=== PATIENT | male | born 1955 | race African-American/Black ===

== ENCOUNTER → 2017-11-12 | Outpatient (CLI) | payer OTHER ==
[~2017-11-12] MED LIST: ALFU10TA11 PO; DUTA1CPM PO; FINA5TAB6 PO; LISI-552 PO
--- NOTE | 2017-11-12 17:19 | Diagnostic Imaging Report ---
PROCEDURE: CT abdomen and pelvis without contrast. TECHNIQUE: Multiple contiguous axial images were obtained through the abdomen and pelvis without the use of intravenous contrast. INDICATION: Gross hematuria. COMPARISON: None. FINDINGS: The lung bases are clear. The heart is normal in size. There is no pericardial effusion. There is a 2.5 cm circumscribed hypodense lesion in segment 8 of the liver. The remainder of the liver is unremarkable on this noncontrast study. The spleen appears normal. The pancreas appears normal. The adrenal glands are unremarkable. There is no hydronephrosis. No renal calculi are seen. The kidneys are otherwise unremarkable on this noncontrast study. The bowel loops are nondistended without evidence of obstruction. The appendix is normal. The urinary bladder is decompressed. The prostate is mildly large, measuring 6 cm transverse. Sclerotic foci in the proximal left femur likely represent bone islands. No acute osseous abnormality is seen. IMPRESSION: 1. No hydronephrosis or obstructing renal calculi. No acute renal abnormality is seen on this noncontrast study. 2. 2.5 cm hypodense lesion in segment 8 of the liver. The border is well circumscribed and this could represent a benign lesion, however consider nonemergent followup CT or MRI using liver contrast protocol. 3. Prostatomegaly. Dictated by: Dictated on workstation # [id number]
== END ==
LOC: RAD 16:50
PROVIDERS: ATTEND Urology
DX: N40.0 Benign prostatic hyperplasia without lower urinary tract symptoms (principal); K76.0 Fatty (change of) liver, not elsewhere classified
CPT/HCPCS: 74176

== ENCOUNTER → 2017-11-15 | Outpatient (CLI) | payer OTHER ==
[~2017-11-15] MED LIST changes: +IOHEXOL 350 MG/ML 100 ML (OMNIPAQUE 350) VIAL IV ONE; +NS 250 ML (IVPB) BAG IV ONE
[2017-11-15 13:34] LABS: BUN/CREATININE RATIO 13; CREATININE SERUM 0.98 MG/DL (0.60-1.30); GFR ESTIMATED > 60
--- NOTE | 2017-11-15 14:24 | Diagnostic Imaging Report ---
PROCEDURE: CT abdomen with and without contrast. TECHNIQUE: Multiple contiguous axial CT images of the abdomen were obtained prior to and after intravenous administration of iodinated contrast. INDICATION: Liver mass noted on CT study from 11/12/2017. The study is performed for further evaluation. FINDINGS: The lung bases are clear. Circumscribed hypodense lesion in the dome of the right lobe of the liver is again noted measuring 2.7 cm. This does show peripheral nodular enhancement on the arterial-phase portion of the exam. There is some filling in of the lesion on the portal-venous phase. The lesion appears to be completely isodense to the liver on delayed imaging. Features are consistent with a cavernous hemangioma. There is a second lesion more inferiorly in the right lobe of the liver measuring 3.0 x 1.9 cm. This has similar features with peripheral nodular enhancement and filling in and again is consistent with hemangioma. No other liver lesions are seen. The gallbladder is unremarkable. The pancreas and spleen are unremarkable. No adrenal mass is seen. Kidneys are unremarkable. Aorta is nonaneurysmal. Bowel loops are normal in caliber. There is no ascites. IMPRESSION: There are two hypodense lesions within the liver, as described. Imaging characteristics are suggestive of cavernous hemangiomas. No other abnormality is detected. Dictated by: Dictated on workstation # [id number]
== END ==
LOC: RAD 06:40
PROVIDERS: ATTEND Urology
DX: K76.0 Fatty (change of) liver, not elsewhere classified (principal)
CPT/HCPCS: 36415; 74170; 82565; 84520

== ENCOUNTER → 2018-07-25 | Outpatient (CLI) | payer BC ==
[~2018-07-25] MED LIST changes: -IOHEXOL 350 MG/ML 100 ML (OMNIPAQUE 350) VIAL IV ONE; -NS 250 ML (IVPB) BAG IV ONE
== END ==
LOC: LAB 15:12
PROVIDERS: ATTEND Urology
DX: R31.0 Gross hematuria (principal)
CPT/HCPCS: 88112

== ENCOUNTER 2018-07-31 14:09 | Emergency (ER) | payer BC ==
[~2018-07-31] VITALS: Ht 203.2 cm; Wt 127.0 kg
[2018-07-31] MEDS ORDERED: predniSONE 20 MG TAB PO ONE (14:15)
[2018-07-31 14:29] LABS: BASOPHILS % (AUTO) 0 % (0-10); EOSINOPHILS # (AUTO) 0.2 10^3/uL (0.0-0.3); EOSINOPHILS % (AUTO) 1 % (0-10); HEMATOCRIT 43 % (40-54); HEMOGLOBIN 14.3 G/DL (13.3-17.7); LYMPHOCYTES # (AUTO) 2.3 X 10^3 (1.0-4.0); LYMPHOCYTES % (AUTO) 16 % (12-44); MEAN CORPUSCULAR HEMOGLOBIN 30 PG (25-34); MEAN CORPUSCULAR HGB CONC 34 G/DL (32-36); MEAN CORPUSCULAR VOLUME 90 FL (80-99); MEAN PLATELET VOLUME 9.9 FL (7.4-10.4); MONOCYTES # (AUTO) 1.1 X 10^3 (0.0-1.0); MONOCYTES % (AUTO) 8 % (0-12); NEUTROPHILS # (AUTO) 10.8 X 10^3 (1.8-7.8); NEUTROPHILS % (AUTO) 75 % (42-75); PLATELET COUNT 293 10^3/uL (130-400); RED CELL DISTRIBUTION WIDTH 13.5 % (10.0-14.5); WHITE BLOOD COUNT 14.5 10^3/uL (4.3-11.0)
[2018-07-31] MEDS ORDERED: cefTRIAXone FOR IV USE 1,000 MG in WATER (STERILE) FOR INJECTION 10 ML IV ONE (14:30)
--- NOTE | 2018-07-31 14:30 | ED Integumentary General ---
General Chief Complaint: Bite-Animal/Human/Insect Stated Complaint: WASP STING Nursing Triage Note: PT AMB TO TRIAGE WITH COMPLAINT OF WASP/BEE STING. STATES HE FEELS HAPPENED SUNDAY. Source: patient Exam Limitations: no limitations History of Present Illness Date Seen by Provider: Jul 31, 2018 Time Seen by Provider: 14:29 Initial Comments To ER with reports of a red wasp sting that occurred on Sunday of this week. Today is Sunday. Beginning yesterday this area became swollen and itchy tender and red. This was to the medial left arm just above the elbow. States that he overall feels fine without nausea vomiting fevers chills or body aches. He's been stung before but never with a reaction like this. Timing/Duration: constant, getting worse Severity: moderate Location: extremities Possible Cause: insect sting Associated Symptoms: denies symptoms Allergies and Home Medications Allergies Coded Allergies: No Known Drug Allergies (Unverified , 01/08/12) Home Medications Alfuzosin HCl 10 Mg Tab.er.24h, 10 MG PO DAILY, (Reported) Finasteride 5 Mg Tablet, 5 MG PO DAILY, (Reported) Lisinopril 20 Mg Tablet, 20 MG PO DAILY, (Reported) Patient Home Medication List Home Medication List Reviewed: Yes Review of Systems Review of Systems Constitutional: see HPI; No chills, No fever EENTM: see HPI Respiratory: no symptoms reported Cardiovascular: no symptoms reported Genitourinary: no symptoms reported Musculoskeletal: no symptoms reported Skin: see HPI Psychiatric/Neurological: No Symptoms Reported Endocrine: No Symptoms Reported Past Wbplytt-Vujapi-Ajasmo Hx Patient Social History Alcohol Use: Occasionally Uses Recreational Drug Use: No Smoking Status: Never a Smoker Recent Foreign Travel: No Contact w/Someone Who Travel: No Recent Infectious Disease Expo: No Immunizations Up To Date Date of Influenza Vaccine: Mar 18, 2015 Seasonal Allergies Seasonal Allergies: No Past Medical History Surgeries: No Respiratory: No Cardiac: Yes Hypertension Neurological: No Genitourinary: Yes Benign Prostatic Hyperpl, Prostate Problems Gastrointestinal: No Musculoskeletal: No Endocrine: No Physical Exam Vital Signs Vital Signs - First Documented 07/31/18 14:14 Pulse 96 Resp 20 B/P (MAP) 147/96 (113) Pulse Ox 96 O2 Delivery Room Air Capillary Refill : Less Than 3 Seconds General Appearance: WD/WN, no apparent distress HEENT: PERRL/EOMI, normal ENT inspection Respiratory: no respiratory distress, no accessory muscle use Neurologic/Psychiatric: alert, normal mood/affect, oriented x 3 Skin: normal color, warm/dry Skin Problem Location: upper extremities Skin Problem Character: other (erythema edema and induration to a large area of the medial left arm. The most indurated region is just proximal to the elbow at the medial aspect. There is no fluctuance. There is no lymphangitis. This is well demarcated.) Progress/Results/Core Measures Results/Orders Lab Results Laboratory Tests Test 07/31/18 14:21 Range/Units White Blood Count 14.5 H 4.3-11.0 10^3/uL Red Blood Count 4.73 4.35-5.85 10^6/uL Hemoglobin 14.3 13.3-17.7 G/DL Hematocrit 43 40-54 % Mean Corpuscular Volume 90 80-99 FL Mean Corpuscular Hemoglobin 30 25-34 PG Mean Corpuscular Hemoglobin Concent 34 32-36 G/DL Red Cell Distribution Width 13.5 10.0-14.5 % Platelet Count 293 130-400 10^3/uL Mean Platelet Volume 9.9 7.4-10.4 FL Neutrophils (%) (Auto) 75 42-75 % Lymphocytes (%) (Auto) 16 12-44 % Monocytes (%) (Auto) 8 0-12 % Eosinophils (%) (Auto) 1 0-10 % Basophils (%) (Auto) 0 0-10 % Neutrophils # (Auto) 10.8 H 1.8-7.8 X 10^3 Lymphocytes # (Auto) 2.3 1.0-4.0 X 10^3 Monocytes # (Auto) 1.1 H 0.0-1.0 X 10^3 Eosinophils # (Auto) 0.2 0.0-0.3 10^3/uL Basophils # (Auto) 0.0 0.0-0.1 10^3/uL My Orders Orders - KAUSHIK PAGE APRN Cbc With Automated Diff (07/31/18 14:12) Prednisone Tablet (Deltasone Tablet) (07/31/18 14:15) Ceftriaxone For Iv Use (Rocephin For I (07/31/18 14:30) Manual Differential (07/31/18 14:21) Vital Signs/I&O 07/31/18 14:14 Pulse 96 Resp 20 B/P (MAP) 147/96 (113) Pulse Ox 96 O2 Delivery Room Air Blood Pressure Mean: 113 Departure Impression Primary Impression: Localized allergic reaction Disposition: HOME, SELF-CARE Condition: Stable Departure-Patient Inst. Decision time for Depature: 14:35 Referrals: NO,LOCAL PHYSICIAN (PCP/Family) Primary Care Physician Patient Instructions: Insect Bites and Stings (DC) Add. Discharge Instructions: 1. Cool compresses to this area. Steroids as directed starting tomorrow. Antibiotics as directed starting tomorrow. Return to ER for any worsening. You can also use sevx-vue-edvgryk Zyrtec Claritin or Benadryl, any of those will help. Take as directed on the bottles. All discharge instructions reviewed with patient and/or family. Voiced understanding. Scripts Cephalexin (Keflex) 500 Mg Capsule 500 MG PO Q6H, #28 CAP Prov: KAUSHIK PAGE APRN 07/31/18 Prednisone (Prednisone) 20 Mg Tab 40 MG PO DAILY, #6 TAB Prov: KAUSHIK PAGE APRN 07/31/18 KAUSHIK PAGE APRN Jul 31, 2018 14:30
[2018-07-31] MEDS ORDERED: PRD20T PO (14:36)
[2018-07-31] MEDS ORDERED: CEPH-507 PO (14:36)
[2018-07-31 14:53] LABS: BAND NEUTROPHILS 2 %; BASOPHILS % (MANUAL) 0 %; EOSINOPHILS % (MANUAL) 2 %; LYMPHOCYTES % (MANUAL) 15 %; MONOCYTES % (MANUAL) 9 %; NEUTROPHILS % (MANUAL) 72 %; RBC MORPH NORMAL
[2018-07-31 15:13] VITALS: BP 147/96
== END 2018-07-31 15:13 | disposition home or self-care (01) ==
LOC: EDUNIT# 14:09 → ER 14:10
DX: T78.40XA Allergy, unspecified, initial encounter (principal); I10 Essential (primary) hypertension; Z87.448 Personal history of other diseases of urinary system
CPT/HCPCS: 36415; 85007; 85027

== ENCOUNTER 2018-08-27 12:00 | Outpatient (RCR) | payer BC ==
[~2018-08-27 12:00] MED LIST changes: +CEPH-507 PO; +PRD20T PO
--- NOTE | 2018-08-27 14:06 | Diagnostic Imaging Report ---
PROCEDURE: CT abdomen and pelvis without contrast. TECHNIQUE: Multiple contiguous axial images were obtained through the abdomen and pelvis without the use of intravenous contrast. Auto Exposure Controls were utilized during the CT exam to meet ALARA standards for radiation dose reduction. INDICATION: Gross hematuria. COMPARISON: Comparison is made with prior CT from 11/15/2017. FINDINGS: The lung bases are clear. Low-density lesion near the liver dome measures 2.3 cm compared with 2.7 cm on prior. A low-density lesion more inferiorly in the medial right lobe appears stable. Gallbladder is contracted. There is no biliary ductal dilatation. The pancreas and spleen are unremarkable. No adrenal mass is identified. No renal calculi are seen. There is no hydronephrosis. Aorta is non-aneurysmal. Small and large bowel loops are normal caliber. Appendix is visualized and unremarkable. There is no ascites. The bladder is decompressed. No calculi are seen. Prostate is enlarged. The prostate measures approximately 5.9 cm AP x 6.0 cm transverse. No abdominal or pelvic lymphadenopathy is seen. IMPRESSION: 1. Stable liver lesions when compared with exam from 11/15/2017. 2. No evidence of urinary tract calculi or hydronephrosis. 3. Prostatomegaly. Dictated by: Dictated on workstation # [id number]
== END 2018-11-25 | disposition home or self-care (01) ==
LOC: LAB 12:00 → RAD 12:56 → EDSTATUS 13:15
PROVIDERS: ATTEND Urology
DX: R31.0 Gross hematuria (principal); N40.1 Benign prostatic hyperplasia with lower urinary tract symptoms; K76.9 Liver disease, unspecified
CPT/HCPCS: 74176; 88112

== ENCOUNTER 2019-06-10 05:41 | Outpatient (CLI) | payer BC ==
[~2019-06-10] VITALS: Ht 205.7 cm; Wt 135.9 kg
[~2019-06-10 05:41] MED LIST changes: -ALFU10TA11 PO; +ALFU10TA12 PO
== END 2019-06-10 09:55 | disposition home or self-care (01) ==
LOC: PREOP 05:41
PROVIDERS: ATTEND Internal Medicine
DX: Z01.818 Encounter for other preprocedural examination (principal)

== ENCOUNTER 2019-06-13 08:01 | Day surgery (SDC) | payer BC, OTHER ==
--- NOTE | 2019-06-10 07:58 | HISTORY AND PHYSICAL ---
DATE OF SERVICE: COLONOSCOPY HISTORY AND PHYSICAL The patient is a 63-year-old white male seen for initial office visit on 06/04/2019. He reports history of hypertension and reports for the past several years he has had daytime somnolence with fatigue. He did not think that he was a significant snorer, but when he sleeps with his girlfriend, she tends to fall asleep first so is not aware that anybody has actually watched him while he is sleeping. He denies any problems with morning headache. He has a history of hypertension and little over 6 months ago was noted to have microscopic hematuria on routine UA at his urologist's office. He had a negative workup, but was started on half of Bactrim DS at bedtime that he has been taking for the last six months. Previously, he was Dr. Roberts's patient. He denies any change in weight. He has no past history of known cerebrovascular disease. Denies chest discomfort or dyspnea on exertion. FAMILY HISTORY: Pertinent for father of lung cancer in his 60s, smoked. Had a mother who of pancreatic cancer, also smoked at the age of 63. He has 2 sisters in their 60s with no health problems. He is not aware of any family history for colon cancer. PHYSICAL EXAMINATION: GENERAL: Reveals a tall black male who appeared to be in no acute distress. VITAL SIGNS: He is 6 feet 9 inches tall, weighing 299 pounds, blood pressure 148/90. HEENT: Unremarkable. Ear canals clear with normal TMs. NECK: Revealed no JVD, adenopathy or bruits. CHEST: Clear to auscultation. CARDIOVASCULAR: Revealed a regular rate and rhythm without murmur, S3 or S4. ABDOMEN: Soft, supple without mass, organomegaly or tenderness. EXTREMITIES: Reveal no cyanosis, clubbing or edema. SKIN: Evaluation reveals no suspicious nevi. We did send off a chemistry panel, CBC and TSH. PSAs are being followed by Dr. Gillette. Lipid panel will be added as well as blood tests return. Hemoglobin was borderline at 13.9 with an MCV of 91. Remainder of his white count was normal. ALT was mildly elevated at 57. The remainder of his liver function test and the remainder of his chemistry panel was normal with a nonfasting sugar of 94. ASSESSMENT AND PLAN: 1. The patient is being set up for screening colonoscopy. Prep instructions with the Suprep kit were given and questions were answered. 2. Hypertension. The patient reports his blood pressures at home tend to run lower. He was advised to switch his lisinopril to bedtime. We will continue finasteride and alfuzosin. 3. Isolated ALT elevation likely due to fatty liver disease. For part of his workup, he did have a CT scan. I will need to review these records and x-rays will be discussing at the time of his colonoscopy. I will be again stressing the importance of portion control and weight loss. Job ID: [id number] DocumentID: [id number] Dictated Date: 06/04/2019 18:13:24 Duster Tender Date: 06/04/2019 18:42:03 Dictated By: ARTHUR BHAKTA MD MTDD
[2019-06-13] VITALS (17 sets, daily range): BP systolic 144–177; BP diastolic 68–97
[~2019-06-13] VITALS: Ht 203.2 cm; Wt 135.9 kg
[~2019-06-13 08:01] MED LIST changes: +D5 LR IV SOLUTION 1,000 ML IV ONE
[2019-06-13] MEDS ORDERED: D5 LR IV SOLUTION 1,000 ML IV STA (08:06)
[2019-06-13] MEDS ORDERED: MIDAZOLAM 5 MG/5 ML (VERSED) VIAL IV PRN (08:15)
[2019-06-13] MEDS ORDERED: fentaNYL INJECTION 100 MCG/2 ML AMP IVP ONE (08:15)
[2019-06-13] MEDS ORDERED: LIDOCAINE JELLY 2% 6 ML SYRINGE ONE (08:34)
[2019-06-13] MEDS ORDERED: MIDAZOLAM 5 MG/5 ML (VERSED) VIAL ONE (08:34)
[2019-06-13] MEDS ORDERED: fentaNYL INJECTION 100 MCG/2 ML AMP ONE (08:34)
--- NOTE | 2019-06-13 09:38 | Pre-Op Note & Conscious Sedat ---
Pre-Operative Progress Note H&P Reviewed The H&P was reviewed, patient examined and no changes noted. Date H&P Reviewed: Jun 13, 2019 Time H&P Reviewed: 08:30 Conscious Sedation Pre-Proced ASA Score 2 For ASA 3 and 4: Consider anesthesia and medical clearance. Also, for patients with a history of failed moderate sedation consider anesthesia. Airway Lungs Heart ASA score ASA 1: a normal healthy patient ASA 2: a patient with a mild systemic disease (mid diabetes, controlled hypertension, obesity ASA 3: a patient with a severe systemic disease that limits activity (angina, COPD, prior Myocardial infarction) ASA 4: a patient with an incapacitating disease that is a constant threat to life (CHF, renal failure) ASA 5: a moribund patient not expected to survive 24 hrs. (ruptured aneurysm) ASA 6: a declared brain- patient whose organs are being harvested. For emergent operations, add the letter E after the classification Mallampati Classification Grade 2 Sedation Plan Analgesia, Amnesia, Plan communicated to team members, Discussed options with patient/fam, Discussed risks with patient/fam The patient is an appropriate candidate to undergo the planned procedure, sedation, and anesthesia. The patient immediately re-assessed prior to indication. ARTHUR BHAKTA MD Jun 13, 2019 09:38
[2019-06-13] MEDS ORDERED: LIDOCAINE JELLY 2% 6 ML SYRINGE TOP ONE (10:00)
--- NOTE | 2019-06-13 16:01 | OPERATIVE REPORT ---
DATE OF SERVICE: COLONOSCOPY SUMMARY INDICATION FOR THE PROCEDURE: Screening colonoscopy. DESCRIPTION OF PROCEDURE: The patient was placed in the left lateral decubitus position. Prior to undergoing colonoscopy, digital rectal evaluation was performed. Anal sphincter tone was normal and the perianal reflexes intact. Prostate is normal in size, anodular, nontender to digital inspection. No abnormalities noted on digital inspection of the anal canal or distal rectal vault. The colonoscope was then inserted into the rectum and under direct visualization advanced to cecum. The cecum was identified by identification of ileocecal valve and cecal strap. Photographic documentation was obtained. Careful inspection was made as the colonoscope withdrawn. The patient tolerated the procedure well. FINDINGS: There was no evidence for internal or external hemorrhoids and the rectum was unremarkable. The sigmoid colon was unremarkable. Present in the distal transverse colon was a diminutive polyp with hyperplastic features. It was biopsied, ablated and submitted for histopathology. Present in the proximal transverse colon was another polyp. I was only able to grasp normal colonic mucosa adjacent to the polyp due to its location. Cautery current was noted underneath the polyp, which had hyperplastic features and was only 2 to 3 mm in size. There was no subsequent blood loss. It was not submitted for histopathology. The hepatic flexure was unremarkable. Present in the proximal ascending colon was a diminutive adenomatous appearing polyp measuring 3 mm in size. It was biopsied and ablated and submitted for histopathology. The remainder of the ascending colon and cecum was unremarkable. ASSESSMENT: Three polyps were biopsied, cauterized via hot forceps with no subsequent blood loss in the above locations. This was an otherwise normal colonoscopy to the cecum. We will await histopathology report before advocating repeat surveillance colonoscopy. Digital evaluation of the prostate was unremarkable. Job ID: [id number] DocumentID: [id number] Dictated Date: 06/13/2019 11:18:12 Hair Assistant Date: 06/13/2019 16:00:55 Dictated By: ARTHUR BHAKTA MD
== END 2019-06-13 10:15 | disposition home or self-care (01) ==
LOC: ENDO 08:01
PROVIDERS: ATTEND Internal Medicine
DX: Z12.11 Encounter for screening for malignant neoplasm of colon (principal); D12.2 Benign neoplasm of ascending colon; K63.5 Polyp of colon; I10 Essential (primary) hypertension; K76.0 Fatty (change of) liver, not elsewhere classified; Z80.1 Family history of malignant neoplasm of trachea, bronchus and lung; Z80.0 Family history of malignant neoplasm of digestive organs
CPT/HCPCS: 88305

== ENCOUNTER 2019-08-20 13:19 | Outpatient (CLI) | payer OTHER ==
[~2019-08-20 13:19] MED LIST changes: -D5 LR IV SOLUTION 1,000 ML IV ONE
== END 2019-08-20 14:30 | disposition home or self-care (01) ==
LOC: SLEEP 13:19
PROVIDERS: ATTEND Nurse Practitioner Family
DX: G47.33 Obstructive sleep apnea (adult) (pediatric) (principal); G47.10 Hypersomnia, unspecified; R06.83 Snoring

== ENCOUNTER → 2020-02-09 | Outpatient (CLI) | payer OTHER ==
--- NOTE | 2020-02-09 14:16 | Diagnostic Imaging Report ---
PROCEDURE: CT abdomen and pelvis without contrast. TECHNIQUE: Multiple contiguous axial images were obtained through the abdomen and pelvis without the use of intravenous contrast. Auto Exposure Controls were utilized during the CT exam to meet ALARA standards for radiation dose reduction. INDICATION: Hematuria for two weeks. COMPARISON: Correlation is made with prior CT from 08/27/2018. FINDINGS: The lung bases are clear. Low-density lesion at the dome of the liver measures approximately 2.8 cm compared with 2.6 cm on prior exam when measured by similar technique. Ill-defined low density in medial and inferior right lobe is stable. No new liver lesion is identified. Gallbladder is unremarkable. There is no biliary ductal dilatation. Pancreas and spleen are unremarkable. No adrenal mass is detected. Kidneys are without calculi or hydronephrosis. Aorta is nonaneurysmal. Small and large bowel loops are normal in caliber. There is no free fluid or fluid collection. Bladder is unremarkable. Prostate is enlarged. No definite pelvic or abdominal lymphadenopathy is seen. Bony structures are nonacute. IMPRESSION: 1. Stable liver lesions. 2. No evidence of urinary tract calculi or obstruction. 3. Prostatomegaly. 4. No acute feature identified. Dictated by: Dictated on workstation # [id number]
== END ==
LOC: RAD 13:45
PROVIDERS: ATTEND Urology
DX: K76.9 Liver disease, unspecified (principal); N40.1 Benign prostatic hyperplasia with lower urinary tract symptoms
CPT/HCPCS: 74176

== ENCOUNTER 2022-08-03 05:28 | Outpatient (CLI) | payer MEDICARE, OTHER ==
[~2022-08-03] VITALS: Ht 203.2 cm; Wt 120.9 kg
[~2022-08-03 05:28] MED LIST changes: -LISI-552 PO; +LISI20TA26 PO
[2022-08-03] MEDS ORDERED: LISI10TA25 PO (11:29)
[2022-08-03] MEDS ORDERED: SULF1TAB34 PO (11:29)
== END 2022-08-03 11:36 | disposition home or self-care (01) ==
LOC: PREOP 05:28
PROVIDERS: ATTEND Internal Medicine
DX: Z01.818 Encounter for other preprocedural examination (principal)

== ENCOUNTER 2022-08-11 07:19 | Day surgery (SDC) | payer MEDICARE, OTHER ==
--- NOTE | 2022-08-02 16:39 | HISTORY AND PHYSICAL ---
COLONOSCOPY HISTORY AND PHYSICAL HISTORY OF PRESENT ILLNESS: The patient is a 66-year-old black male who presented to the office for followup of hyperlipidemia and hypertension as well as anxiety. He has undergone colonoscopy 3 years ago, at which time he had a sessile tubular adenoma removed from the proximal ascending colon, portion of it was behind a fold. There was no evidence for dysplasia but there is a 3-year recommendation for followup. He has been feeling well. He has had no bright red blood per rectum, melena, change in bowel habit or abdominal pain. Anxiety has been at baseline. He continues to walk a little over 5 miles, most days of the week. He takes an extended weekend vacation monthly and that the only time that he is not always getting in is 5+ miles. He has had no chest discomfort. Denies orthopnea, PND, or pedal edema. PHYSICAL EXAMINATION: GENERAL: Reveals a pleasant black male, slightly anxious, in no acute distress. VITAL SIGNS: Weight 266 pounds, which is up 14 pounds, blood pressure 120/84. CHEST: Clear. CARDIOVASCULAR: Reveals regular rate and rhythm without murmur, S3, or S4. ABDOMEN: Soft, supple without mass, organomegaly, or tenderness. EXTREMITIES: Revealed no cyanosis, clubbing or edema. Blood tests were reviewed and despite weight gain cholesterol panel parameters are under good control, on statin therapy with an LDL of 88 and HDL of 47 with a triglyceride level of 56. Basic metabolic panel was normal with a fasting sugar of 94. ASSESSMENT AND PLAN: 1. History of colonic polyp, status post ablation from the proximal ascending colon. The patient is being scheduled for surveillance colonoscopy. Prep instructions were given and questions were answered. 2. Hypertension, under good control. 3. Hyperlipidemia, under good control. Did discuss the negative impact of weight gain and need for portion control. No significant fluid related calories reported. He is getting plenty of physical activity. We will see him back in 6 months. Job ID: [id number] DocumentID: [id number] Dictated Date: 08/02/2022 16:08:05 Process Planner Date: 08/02/2022 16:37:00 Dictated By: ARTHUR BHAKTA MD [facility]
[~2022-08-11] VITALS: Ht 203.2 cm; Wt 120.9 kg
[~2022-08-11 07:19] MED LIST changes: +LISI10TA25 PO; +SULF1TAB34 PO
[2022-08-11] MEDS ORDERED: LACTATED RINGERS 1,000 ML IV STA (07:20)
[2022-08-11 07:36] VITALS: BP 144/96
[2022-08-11] MEDS ORDERED: MIDAZOLAM 2 MG/2 ML (VERSED) VIAL ONE (07:52)
[2022-08-11] MEDS ORDERED: PROPOFOL INJECTION 50 ML IV ONE (07:52)
--- NOTE | 2022-08-11 08:01 | Pre-Op Note & Conscious Sedat ---
Pre-Operative Progress Note Date H&P Reviewed: August 11, 2022 Time H&P Reviewed: 07:50 History & Physical: H&P Reviewed, Patient Examed, No changes noted Pre-Op Diagnosis: hx of polyps Moderate Sedation PreProcedure ASA Score 2 Airway Lungs Heart ASA score ASA 1: a normal healthy patient ASA 2: a patient with a mild systemic disease (mid diabetes, controlled hypertension, obesity ASA 3: a patient with a severe systemic disease that limits activity (angina, COPD, prior Myocardial infarction) ASA 4: a patient with an incapacitating disease that is a constant threat to life (CHF, renal failure) ASA 5: a moribund patient not expected to survive 24 hrs. (ruptured aneurysm) ASA 6: a declared brain- patient whose organs are being harvested. For emergent operations, add the letter E after the classification Mallampati Classification Grade 1 Sedation Plan Analgesia, Amnesia, Plan communicated to team members, Discussed options with patient/fam, Discussed risks with patient/fam The patient is an appropriate candidate to undergo the planned procedure, sedation, and anesthesia. The patient immediately re-assessed prior to indication. ARTHUR BHAKTA MD August 11, 2022 08:01
[2022-08-11 08:30] VITALS: BP 102/61
[2022-08-11 08:35] VITALS: BP 102/61
--- NOTE | 2022-08-11 08:37 | Progress Note-Post Operative ---
Post-Procedure Note Physician (s)/Auto Body Service Mechanic (s) Physician ARTHUR BHAKTA MD Pre-Procedure Diagnosis Pre-Procedure Diagnosis: hx of polyps Post-Procedure Diagnosis Post-operative diagnosis: Prior to undergoing colonoscopy digital rectal evaluation was performed. Anal suture tone was normal and the perianal reflexes intact. Prostate is mild to moderately enlarged and a nodular on digital inspection. No other abnormalities are noted on digital inspection anal canal or distal rectal vault. The colonoscope was then inserted into the rectum and under direct visualization advanced to the cecum. The cecum was identified by indication of the ileocecal valve and cecal strap. Photographic documentation was obtained. A careful inspection was made as the colonoscope was withdrawn. Quality the prep was good. Findings: There are no evidence for internal/external hemorrhoids in the rectum sigmoid colon descending colon splenic flexure transverse colon and hepatic flexure unremarkable. Present the proximal ascending colon was a sessile adenomatous appearing polyp roughly 4 byx 8 mm in size it was biopsied and ablated and submitted for histopathology after photographed. There was no subsequent blood loss. The cecum was unremarkable. A/P 1. One 6 x 8 mm sessile proximal ascending colonic polyp was removed via hot forceps with no subsequent blood loss. As long as there are no surprises on histopathology report would likely advocate 5-year surveillance colonoscopy. Digital evaluation the prostate was compatible with mild to moderate BPH. No other abnormalities are noted on today's procedure under good prep conditions. ARTHUR BHAKTA MD August 11, 2022 08:37
[2022-08-11 08:45] VITALS: BP 102/61
[2022-08-11 08:58] VITALS: BP 102/61
--- NOTE | 2022-08-11 11:03 | Anesthesia-General Post-Op ---
MAC Patient Condition Mental Status/LOC: Same as Preop Cardiovascular: Satisfactory Nausea/Vomiting: Absent Respiratory: Satisfactory Pain: Controlled Complications: Absent Post Op Complications Complications None Follow Up Care/Instructions Patient Instructions None needed. Anesthesiology Discharge Order Discharge Order Patient is doing well, no complaints, stable vital signs, no apparent adverse anesthesia problems. No complications reported per nursing. DRAKE MCKEON CRNA August 11, 2022 11:03
== END 2022-08-11 09:10 | disposition home or self-care (01) ==
LOC: ENDO 07:19
PROVIDERS: ATTEND Internal Medicine
DX: Z12.11 Encounter for screening for malignant neoplasm of colon (principal); D12.2 Benign neoplasm of ascending colon; N40.0 Benign prostatic hyperplasia without lower urinary tract symptoms; I10 Essential (primary) hypertension; E78.5 Hyperlipidemia, unspecified; F41.9 Anxiety disorder, unspecified; Z79.899 Other long term (current) drug therapy